=== PATIENT | female | born 1965 | race Caucasian/White ===

== ENCOUNTER 2017-11-14 11:17 | Outpatient (CLI) | payer OTHER ==
[~2017-11-14 11:17] MED LIST: DIPH-423 PO
[2017-11-14 12:27] LABS: BASOPHILS # (AUTO) 0.1 X10'3 (0-0.2); EOSINOPHILS # (AUTO) 0.3 X10'3 (0-0.9); EOSINOPHILS % (AUTO) 3.5 % (0-6); HEMATOCRIT 40.6 % (35.0-45.0); HEMOGLOBIN 14.5 g/dl (12.0-16.0); LYMPHOCYTES # (AUTO) 2.9 X10'3 (1.1-4.8); LYMPHOCYTES % (AUTO) 37.2 % (21-51); MEAN CORPUSCULAR HEMOGLOBIN 31.8 PG (27.0-31.0); MEAN CORPUSCULAR HGB CONC 35.6 % (33.0-36.5); MEAN CORPUSCULAR VOLUME 89.3 FL (78-98); MEAN PLATELET VOLUME 9.2 FL (7.4-10.4); MONOCYTES # (AUTO) 0.4 X10'3 (0-0.9); MONOCYTES % (AUTO) 5.4 % (2-12); NEUTROPHILS # (AUTO) 4.1 X10'3 (1.8-7.7); NEUTROPHILS % (AUTO) 52.9 % (42-75); PLATELET COUNT 239 X10'3 (140-440); RED BLOOD COUNT 4.55 X10'6 (4.20-5.60); RED CELL DISTRIBUTION WIDTH 12.2 % (11.5-14.5); WHITE BLOOD COUNT 7.8 X10'3 (4.5-11.0)
[2017-11-14 12:37] LABS: HEMOGLOBIN A1C 5.8 % (4.5-6.2)
[2017-11-14 12:42] LABS: CLARITY,URINE CLEAR (Clear); COLOR,URINE YELLOW (Yellow); GLUCOSE, URINE NEGATIVE (Neg); KETONES,URINE NEGATIVE (Neg); LEUKOCYTE ESTERASE ,URINE NEGATIVE (Neg); NITRITES, URINE NEGATIVE (Neg); OCCULT BLOOD,URINE NEGATIVE (Neg); PH,URINE 5.5 (4.8-8.0); PROTEIN,URINE NEGATIVE (Neg); UROBILINOGEN,URINE 0.2 E.U/dL (0.2-1.0)
[2017-11-14 12:46] LABS: ALANINE AMINOTRANSFERASE 25 U/L (12-78); ALBUMIN 4.2 G/DL (3.4-5.0); ALBUMIN/GLOBULIN RATIO 1.2 (1.1-1.5); ALKALINE PHOSPHATASE 62 IU/L (46-116); ANION GAP 11 (8-16); ASPARTATE AMINO TRANSFERASE 14 U/L (10-37); BILIRUBIN,TOTAL 0.5 MG/DL (0.1-1.0); BLOOD UREA NITROGEN 10 MG/DL (7-18); BUN/CREATININE RATIO 10.2 (6.6-38.0); CALCIUM 8.8 MG/DL (8.5-10.1); CHLORIDE 98 MMOL/L (99-107); CHOL/HDL RATIO 4.5 (0.00-4.99); CHOLESTEROL 239 MG/DL (0-200); CREATININE 0.98 MG/DL (0.40-0.90); GLUCOSE 111 MG/DL (70-104); HDL CHOLESTEROL 53 MG/DL (35-60); LDL CHOLESTEROL 156 MG/DL (50-100); POTASSIUM 3.6 MMOL/L (3.5-5.1); SODIUM 136 MMOL/L (135-145); TOTAL CARBON DIOXIDE 26.7 MMOL/L (24-32); TOTAL PROTEIN 7.7 G/DL (6.4-8.2); TRIGLYCERIDES 143 MG/DL (20-135); eGFR 59 ML/MIN
[2017-11-14 12:46] LABS: UA COLLECTION TYPE CLN CATCH MIDSTREAM
== END 2017-11-14 23:59 | disposition home or self-care (01) ==
LOC: LAB 11:17
PROVIDERS: ATTEND Family Medicine
DX: Z00.01 Encounter for general adult medical examination with abnormal findings (principal); R73.09 Other abnormal glucose
CPT/HCPCS: 36415; 80053; 80061; 81003; 82306; 83036; 84443; 84550; 85025

== ENCOUNTER 2017-11-21 13:00 | Outpatient (CLI) | payer OTHER | END 2017-11-21 23:59 | disposition home or self-care (01) | LOC: LAB 13:00 | PROVIDERS: ATTEND Family Medicine | DX: R73.09 Other abnormal glucose (principal) | CPT/HCPCS: 36415; 82043; 82570 ==

== ENCOUNTER 2018-02-07 14:43 | Emergency (ER) | payer OTHER ==
[~2018-02-07] VITALS: Ht 152.4 cm; Wt 81.8 kg
[2018-02-07] MEDS ORDERED: normal saline 1000ML IV soln IVB ONE (15:10)
[2018-02-07] MEDS ORDERED: ondansetron/PF 4mg/2ml inj IV ONE (15:10)
[2018-02-07 15:40] LABS: BASOPHILS % (AUTO) 0.4 % (0-1); EOSINOPHILS # (AUTO) 0.2 X10'3 (0-0.9); EOSINOPHILS % (AUTO) 1.6 % (0-6); HEMATOCRIT 41.2 % (35.0-45.0); HEMOGLOBIN 14.6 g/dl (12.0-16.0); LYMPHOCYTES # (AUTO) 2.7 X10'3 (1.1-4.8); MEAN CORPUSCULAR HGB CONC 35.3 % (33.0-36.5); MEAN CORPUSCULAR VOLUME 90.5 FL (78-98); MEAN PLATELET VOLUME 8.6 FL (7.4-10.4); MONOCYTES # (AUTO) 0.6 X10'3 (0-0.9); MONOCYTES % (AUTO) 5.4 % (2-12); NEUTROPHILS % (AUTO) 66.6 % (42-75); PLATELET COUNT 226 X10'3 (140-440); RED BLOOD COUNT 4.55 X10'6 (4.20-5.60); RED CELL DISTRIBUTION WIDTH 12.3 % (11.5-14.5); WHITE BLOOD COUNT 10.5 X10'3 (4.5-11.0)
[2018-02-07 15:56] LABS: ALANINE AMINOTRANSFERASE 28 U/L (12-78); ALBUMIN/GLOBULIN RATIO 1.3 (1.1-1.5); ALKALINE PHOSPHATASE 59 IU/L (46-116); ANION GAP 13 (8-16); ASPARTATE AMINO TRANSFERASE 22 U/L (10-37); BILIRUBIN,TOTAL 0.7 MG/DL (0.1-1.0); BLOOD UREA NITROGEN 14 MG/DL (7-18); BUN/CREATININE RATIO 13.7 (6.6-38.0); CALCIUM 9.1 MG/DL (8.5-10.1); CHLORIDE 91 MMOL/L (99-107); CREATININE 1.02 MG/DL (0.40-0.90); GLUCOSE 97 MG/DL (70-104); LIPASE 65 U/L (73-393); SODIUM 130 MMOL/L (135-145); TOTAL CARBON DIOXIDE 26.2 MMOL/L (24-32); TOTAL PROTEIN 7.2 G/DL (6.4-8.2); eGFR 57 ML/MIN
[2018-02-07 16:12] LABS: POTASSIUM 2.9 MMOL/L (3.5-5.1)
[2018-02-07] MEDS: potassium 10mEq/100ml NS w/LIDOcaine (10mg/bag) IV SCH ×2 (16:21→17:17)
[2018-02-07] MEDS ORDERED: POTA20TA19 PO (17:25)
[2018-02-07 17:40] VITALS: BP 122/72
== END 2018-02-07 19:31 | disposition home or self-care (01) ==
LOC: ER 14:45
DX: M54.9 Dorsalgia, unspecified (principal); E87.6 Hypokalemia; I10 Essential (primary) hypertension; Z79.899 Other long term (current) drug therapy
CPT/HCPCS: 36415; 80053; 83690; 85025; 96361; 96365; 96366; 96375; 99285; J2405; J3480; J7030

== ENCOUNTER 2018-02-28 13:47 | Outpatient (CLI) | payer OTHER ==
[~2018-02-28 13:47] MED LIST changes: +POTA20TA19 PO
[2018-02-28 14:33] LABS: ALANINE AMINOTRANSFERASE 26 U/L (12-78); ALBUMIN 4.1 G/DL (3.4-5.0); ALBUMIN/GLOBULIN RATIO 1.1 (1.1-1.5); ALKALINE PHOSPHATASE 70 IU/L (46-116); ANION GAP 10 (8-16); ASPARTATE AMINO TRANSFERASE 19 U/L (10-37); BILIRUBIN,TOTAL 0.6 MG/DL (0.1-1.0); BLOOD UREA NITROGEN 13 MG/DL (7-18); BUN/CREATININE RATIO 9.8 (6.6-38.0); CALCIUM 8.9 MG/DL (8.5-10.1); CHLORIDE 99 MMOL/L (99-107); CREATININE 1.33 MG/DL (0.40-0.90); GLUCOSE 133 MG/DL (70-104); PHOSPHORUS 3.3 MG/DL (2.3-4.5); POTASSIUM 3.3 MMOL/L (3.5-5.1); SODIUM 134 MMOL/L (135-145); TOTAL CARBON DIOXIDE 25.1 MMOL/L (24-32); TOTAL PROTEIN 7.9 G/DL (6.4-8.2); eGFR 42 ML/MIN
== END 2018-02-28 23:59 | disposition home or self-care (01) ==
LOC: LAB 13:47
PROVIDERS: ATTEND Internal Medicine Gastroenterology
DX: E87.6 Hypokalemia (principal); E56.1 Deficiency of vitamin K
CPT/HCPCS: 36415; 80053; 83735; 84100

== ENCOUNTER 2018-12-11 07:35 | Outpatient (CLI) | payer OTHER ==
[~2018-12-11 07:35] MED LIST changes: -POTA20TA19 PO
[2018-12-11 08:49] LABS: BASOPHILS # (AUTO) 0.1 X10'3 (0-0.2); BASOPHILS % (AUTO) 0.9 % (0-1); EOSINOPHILS # (AUTO) 0.1 X10'3 (0-0.9); EOSINOPHILS % (AUTO) 1.9 % (0-6); HEMATOCRIT 43.8 % (35.0-45.0); LYMPHOCYTES # (AUTO) 2.3 X10'3 (1.1-4.8); LYMPHOCYTES % (AUTO) 32.1 % (21-51); MEAN CORPUSCULAR HEMOGLOBIN 31.5 PG (27.0-31.0); MEAN CORPUSCULAR HGB CONC 34.2 g/dL (33.0-36.5); MEAN CORPUSCULAR VOLUME 92.2 FL (78-98); MONOCYTES # (AUTO) 0.4 X10'3 (0-0.9); MONOCYTES % (AUTO) 5.7 % (2-12); NEUTROPHILS # (AUTO) 4.2 X10'3 (1.8-7.7); NEUTROPHILS % (AUTO) 59.4 % (42-75); PLATELET COUNT 218 X10'3 (140-440); RED BLOOD COUNT 4.75 X10'6 (4.20-5.60); RED CELL DISTRIBUTION WIDTH 12.5 % (11.5-14.5); WHITE BLOOD COUNT 7.1 X10'3 (4.5-11.0)
[2018-12-11 09:02] LABS: CLARITY,URINE CLEAR (Clear); COLOR,URINE YELLOW (Yellow); GLUCOSE, URINE NEGATIVE (Neg); KETONES,URINE NEGATIVE (Neg); LEUKOCYTE ESTERASE ,URINE NEGATIVE (Neg); NITRITES, URINE NEGATIVE (Neg); OCCULT BLOOD,URINE NEGATIVE (Neg); PH,URINE 5.5 (4.8-8.0); PROTEIN,URINE NEGATIVE (Neg); UROBILINOGEN,URINE 0.2 E.U/dL (0.2-1.0)
[2018-12-11 09:06] LABS: UA COLLECTION TYPE NON-SPECIFIED
[2018-12-11 09:06] LABS: HEMOGLOBIN A1C 5.7 % (4.5-6.2)
[2018-12-11 09:08] LABS: ALANINE AMINOTRANSFERASE 25 U/L (12-78); ALBUMIN 4.2 G/DL (3.4-5.0); ALBUMIN/GLOBULIN RATIO 1.3 (1.1-1.5); ALKALINE PHOSPHATASE 60 IU/L (46-116); ANION GAP 10 (8-16); ASPARTATE AMINO TRANSFERASE 16 U/L (10-37); BILIRUBIN,TOTAL 0.6 MG/DL (0.1-1.0); BLOOD UREA NITROGEN 20 MG/DL (7-18); BUN/CREATININE RATIO 19.4 (6.6-38.0); CHLORIDE 98 MMOL/L (99-107); CHOL/HDL RATIO 5.3 (0.00-4.99); CHOLESTEROL 218 MG/DL (0-200); CREATININE 1.03 MG/DL (0.40-0.90); GLUCOSE 115 MG/DL (70-104); HDL CHOLESTEROL 41 MG/DL (35-60); LDL CHOLESTEROL 145 MG/DL (50-100); POTASSIUM 3.2 MMOL/L (3.5-5.1); SODIUM 132 MMOL/L (135-145); TOTAL CARBON DIOXIDE 24.1 MMOL/L (24-32); TOTAL PROTEIN 7.5 G/DL (6.4-8.2); TRIGLYCERIDES 192 MG/DL (20-135); eGFR 56 ML/MIN
== END 2018-12-11 23:59 | disposition home or self-care (01) ==
LOC: LAB 07:35
PROVIDERS: ATTEND Family Medicine
DX: E78.2 Mixed hyperlipidemia (principal); R73.09 Other abnormal glucose; E03.9 Hypothyroidism, unspecified; N39.0 Urinary tract infection, site not specified; I10 Essential (primary) hypertension; M10.9 Gout, unspecified
CPT/HCPCS: 36415; 80053; 80061; 81003; 83036; 84439; 84443; 85025

== ENCOUNTER 2019-09-20 08:07 | Outpatient (CLI) | payer OTHER ==
[2019-09-20 09:43] LABS: ALBUMIN 4.2 G/DL (3.4-5.0); ANION GAP 11 (8-16); BLOOD UREA NITROGEN 17 MG/DL (7-18); BUN/CREATININE RATIO 15.6 (6.6-38.0); CALCIUM 8.9 MG/DL (8.5-10.1); CHLORIDE 103 MMOL/L (99-107); CHOL/HDL RATIO 5.3 (0.00-4.99); CHOLESTEROL 246 MG/DL (0-200); CREATININE 1.09 MG/DL (0.40-0.90); GLUCOSE 138 MG/DL (70-104); HDL CHOLESTEROL 46 MG/DL (35-60); LDL CHOLESTEROL 163 MG/DL (50-100); MAGNESIUM 2.2 MG/DL (1.5-2.4); POTASSIUM 3.8 MMOL/L (3.5-5.1); SODIUM 138 MMOL/L (135-145); TOTAL CARBON DIOXIDE 23.7 MMOL/L (24-32); TRIGLYCERIDES 188 MG/DL (20-135); eGFR 52 ML/MIN
== END 2019-09-20 23:59 | disposition home or self-care (01) ==
LOC: LAB 08:07
PROVIDERS: ATTEND Family Medicine
DX: Z00.00 Encounter for general adult medical examination without abnormal findings (principal); E03.9 Hypothyroidism, unspecified; R73.09 Other abnormal glucose
CPT/HCPCS: 36415; 80048; 80061; 83036; 83735; 84443

== ENCOUNTER 2020-03-10 08:26 | Outpatient (CLI) | payer OTHER ==
[2020-03-10 10:08] LABS: ALANINE AMINOTRANSFERASE 72 U/L (12-78); ASPARTATE AMINO TRANSFERASE 30 U/L (10-37); CHOL/HDL RATIO 3.6 (0.00-4.99); CHOLESTEROL 174 MG/DL (0-200); HDL CHOLESTEROL 49 MG/DL (35-60); LDL CHOLESTEROL 98 MG/DL (50-100); TRIGLYCERIDES 136 MG/DL (20-135)
== END 2020-03-10 23:59 | disposition home or self-care (01) ==
LOC: LAB 08:26
PROVIDERS: ATTEND Family Medicine
DX: E03.9 Hypothyroidism, unspecified (principal); E78.2 Mixed hyperlipidemia
CPT/HCPCS: 36415; 80061; 84439; 84443; 84450; 84460; 84481

== ENCOUNTER 2020-07-13 13:20 | Emergency (ER) | payer BC ==
[~2020-07-13] VITALS: Ht 152.4 cm; Wt 85.0 kg
== END 2020-07-13 13:40 | disposition home or self-care (01) ==
LOC: ER 13:20
DX: R53.1 Weakness (principal); R42 Dizziness and giddiness; M79.10 Myalgia, unspecified site; I10 Essential (primary) hypertension; Z20.828 Contact with and (suspected) exposure to other viral communicable diseases; E07.9 Disorder of thyroid, unspecified; Z87.19 Personal history of other diseases of the digestive system; Z79.899 Other long term (current) drug therapy
CPT/HCPCS: 87635; 99283; C9803

== ENCOUNTER 2021-03-19 10:43 | Emergency (ER) | payer BC ==
[~2021-03-19] VITALS: Ht 149.9 cm; Wt 90.0 kg
[2021-03-19 10:46] VITALS: BP 169/89
[2021-03-19 11:32] LABS: CLARITY,URINE SLIGHTLY CLOUDY (Clear); GLUCOSE, URINE NEGATIVE (Neg); KETONES,URINE NEGATIVE (Neg); LEUKOCYTE ESTERASE ,URINE MODERATE (Neg); NITRITES, URINE NEGATIVE (Neg); OCCULT BLOOD,URINE LARGE (Neg); PROTEIN,URINE 100 mg/dl (Neg); UROBILINOGEN,URINE 0.2 E.U/dL (0.2-1.0)
[2021-03-19 11:42] LABS: COLOR,URINE PINK (Yellow); UA COLLECTION TYPE CLN CATCH MIDSTREAM
[2021-03-19 11:43] LABS: BACTERIA,URINE FEW /HPF (Neg); SQUAMOUS EPITHELIAL CELL,UR FEW /LPF (FEW)
[2021-03-19 11:44] LABS: WBC CLUMPS,URINE FEW /HPF (NEGATIVE)
[2021-03-19] MEDS ORDERED: NITR100C6 PO (11:59)
[2021-03-19] MEDS ORDERED: nitrofuran/nitrofuran macrocrysal 100 MG capsule PO ONE (12:00)
== END 2021-03-19 12:16 | disposition home or self-care (01) ==
LOC: ER 10:44
DX: R30.9 Painful micturition, unspecified (principal); N39.0 Urinary tract infection, site not specified; R10.84 Generalized abdominal pain; I10 Essential (primary) hypertension; E03.9 Hypothyroidism, unspecified; F17.200 Nicotine dependence, unspecified, uncomplicated; Z87.440 Personal history of urinary (tract) infections; Z79.899 Other long term (current) drug therapy
CPT/HCPCS: 81001; 87077; 87088; 87186; 99283

== ENCOUNTER 2021-04-17 08:09 | Outpatient (CLI) | payer BC ==
[~2021-04-17 08:09] MED LIST changes: +NITR100C6 PO
[2021-04-17 10:35] LABS: BASOPHILS % (AUTO) 0.6 % (0-1); EOSINOPHILS # (AUTO) 0.2 X10'3 (0-0.9); EOSINOPHILS % (AUTO) 2.5 % (0-6); HEMATOCRIT 44.5 % (35.0-45.0); LYMPHOCYTES # (AUTO) 2.5 X10'3 (1.1-4.8); LYMPHOCYTES % (AUTO) 32.6 % (21-51); MEAN CORPUSCULAR HGB CONC 33.7 g/dL (33.0-36.5); MEAN CORPUSCULAR VOLUME 91.9 FL (78-98); MEAN PLATELET VOLUME 9.5 FL (7.4-10.4); MONOCYTES # (AUTO) 0.4 X10'3 (0-0.9); MONOCYTES % (AUTO) 5.2 % (2-12); NEUTROPHILS # (AUTO) 4.6 X10'3 (1.8-7.7); NEUTROPHILS % (AUTO) 59.1 % (42-75); PLATELET COUNT 223 X10'3 (140-440); RED BLOOD COUNT 4.84 X10'6 (4.20-5.60); RED CELL DISTRIBUTION WIDTH 12.4 % (11.5-14.5); WHITE BLOOD COUNT 7.8 X10'3 (4.5-11.0)
[2021-04-17 11:00] LABS: ALANINE AMINOTRANSFERASE 43 U/L (12-78); ALBUMIN 4.1 G/DL (3.4-5.0); ALBUMIN/GLOBULIN RATIO 1.2 (1.1-1.5); ALKALINE PHOSPHATASE 79 IU/L (46-116); ANION GAP 10 (8-16); ASPARTATE AMINO TRANSFERASE 26 U/L (10-37); BILIRUBIN,TOTAL 0.5 MG/DL (0.1-1.0); BLOOD UREA NITROGEN 15 MG/DL (7-18); BUN/CREATININE RATIO 16.5 (6.6-38.0); CALCIUM 8.7 MG/DL (8.5-10.1); CHLORIDE 106 MMOL/L (99-107); CHOLESTEROL 163 MG/DL (0-200); CREATININE 0.91 MG/DL (0.40-0.90); GLUCOSE 112 MG/DL (70-104); HDL CHOLESTEROL 55 MG/DL (35-60); LDL CHOLESTEROL 81 MG/DL (50-100); SODIUM 141 MMOL/L (135-145); TOTAL CARBON DIOXIDE 25.5 MMOL/L (24-32); TOTAL PROTEIN 7.5 G/DL (6.4-8.2); TRIGLYCERIDES 167 MG/DL (20-135); eGFR 64 ML/MIN
== END 2021-04-17 23:59 | disposition home or self-care (01) ==
LOC: LAB 08:09
PROVIDERS: ATTEND Family Medicine
DX: Z00.00 Encounter for general adult medical examination without abnormal findings (principal)
CPT/HCPCS: 36415; 80053; 80061; 82306; 83036; 84439; 84443; 85025

== ENCOUNTER 2021-08-19 06:27 | Day surgery (SDC) | payer BC ==
[~2021-08-19] VITALS: Ht 149.9 cm; Wt 84.1 kg
[~2021-08-19 06:27] MED LIST changes: +APPLE PECTIN PO; +ASCO-139 PO; +ASPI-10 PO; +BLACK CUMIN SEED OIL PO; +CETI10CA PO; +CHOL400T57 PO; -DIPH-423 PO; +LEVO88TA2 PO; +LISI1TAB51 PO; +MAGN500C16 PO; +MULT-1085 PO; -NITR100C6 PO; +OMEG1CAP13 PO; +ONDA4TAB12 PO; +QUER1POW PO; +ROSU10TA2 PO; +TURM500C4 PO; +UBID300C PO; +ZINC30TA2 PO
[2021-08-19 06:35] VITALS: BP 137/79
[2021-08-19] MEDS ORDERED: MIDAZolam 1 MG/ML 5ML VIAL ONE ×2 (07:02)
[2021-08-19] MEDS ORDERED: fentaNYL/PF 50MCG/1 ML 2ML syringe ONE (07:02)
[2021-08-19] MEDS ORDERED: diphenhydrAMINE 50 mg/ml inj ONE (07:02)
[2021-08-19 07:25] VITALS: BP 104/57
[2021-08-19 07:35] VITALS: BP 102/62
[2021-08-19 07:45] VITALS: BP 106/69
[2021-08-19 07:55] VITALS: BP 118/74
== END 2021-08-19 08:25 | disposition home or self-care (01) ==
LOC: GI LAB 06:27
PROVIDERS: ATTEND Internal Medicine Gastroenterology
DX: Z12.11 Encounter for screening for malignant neoplasm of colon (principal); K57.30 Diverticulosis of large intestine without perforation or abscess without bleeding; K64.0 First degree hemorrhoids; F17.210 Nicotine dependence, cigarettes, uncomplicated; I10 Essential (primary) hypertension; Z79.899 Other long term (current) drug therapy; Z86.010 Personal history of colon polyps; Z79.82 Long term (current) use of aspirin
CPT/HCPCS: 45378; 99152; J1200; J2250; J3010; J7040; Z7512; A4620

== ENCOUNTER → 2022-01-25 | Outpatient (CLI) | payer BC ==
[~2022-01-25] MED LIST changes: -MAGN500C16 PO; +MAGN500C4 PO
== END | disposition home or self-care (01) ==
LOC: RAD 15:59
PROVIDERS: ATTEND Family Medicine
DX: M19.011 Primary osteoarthritis, right shoulder (principal); M19.012 Primary osteoarthritis, left shoulder; M19.042 Primary osteoarthritis, left hand; M75.32 Calcific tendinitis of left shoulder; M75.31 Calcific tendinitis of right shoulder
CPT/HCPCS: 73030; 73130

== ENCOUNTER 2022-09-09 07:29 | Outpatient (CLI) | payer BC ==
[~2022-09-09 07:29] MED LIST changes: +OMEG-5 PO; -OMEG1CAP13 PO; -UBID300C PO; +UBID300C3 PO
[2022-09-09 09:12] LABS: BASOPHILS # (AUTO) 0.1 X10'3 (0-0.2); BASOPHILS % (AUTO) 0.8 % (0-1); EOSINOPHILS # (AUTO) 0.1 X10'3 (0-0.9); EOSINOPHILS % (AUTO) 1.6 % (0-6); HEMATOCRIT 44.5 % (35.0-45.0); HEMOGLOBIN 14.7 g/dl (12.0-16.0); LYMPHOCYTES # (AUTO) 2.3 X10'3 (1.1-4.8); MEAN CORPUSCULAR HEMOGLOBIN 30.1 PG (27.0-31.0); MEAN CORPUSCULAR VOLUME 91.4 FL (78-98); MEAN PLATELET VOLUME 9.4 FL (7.4-10.4); MONOCYTES # (AUTO) 0.4 X10'3 (0-0.9); MONOCYTES % (AUTO) 5.5 % (2-12); NEUTROPHILS # (AUTO) 4.8 X10'3 (1.8-7.7); NEUTROPHILS % (AUTO) 62.1 % (42-75); PLATELET COUNT 225 X10'3 (140-440); RED BLOOD COUNT 4.87 X10'6 (4.20-5.60); RED CELL DISTRIBUTION WIDTH 12.7 % (11.5-14.5); WHITE BLOOD COUNT 7.8 X10'3 (4.5-11.0)
[2022-09-09 09:29] LABS: ALANINE AMINOTRANSFERASE 43 U/L (12-78); ALBUMIN 4.2 G/DL (3.4-5.0); ALBUMIN/GLOBULIN RATIO 1.3 (1.1-1.5); ALKALINE PHOSPHATASE 60 IU/L (46-116); ANION GAP 10 (8-16); ASPARTATE AMINO TRANSFERASE 21 U/L (10-37); BILIRUBIN,TOTAL 0.6 MG/DL (0.1-1.0); BLOOD UREA NITROGEN 16 MG/DL (7-18); BUN/CREATININE RATIO 19.3 (6.6-38.0); CALCIUM 9.2 MG/DL (8.5-10.1); CHLORIDE 101 MMOL/L (99-107); CHOL/HDL RATIO 2.7 (0.00-4.99); CHOLESTEROL 193 MG/DL (0-200); CREATININE 0.83 MG/DL (0.40-0.90); GLUCOSE 137 MG/DL (70-104); HDL CHOLESTEROL 72 MG/DL (35-60); LDL CHOLESTEROL 107 MG/DL (50-100); POTASSIUM 3.8 MMOL/L (3.5-5.1); SODIUM 137 MMOL/L (135-145); TOTAL CARBON DIOXIDE 25.9 MMOL/L (24-32); TOTAL PROTEIN 7.5 G/DL (6.4-8.2); TRIGLYCERIDES 164 MG/DL (20-135); eGFR 71 ML/MIN
[2022-09-09 10:01] LABS: HEMOGLOBIN A1C 5.6 % (4.5-6.2)
[2022-09-09 11:14] LABS: RHEUM FACTOR QUAL REFLEX TITER NEGATIVE (Neg)
[2022-09-10 14:01] LABS: MICROALB/CRT, RATIO <18 mg/g creat (0-29)
== END 2022-09-09 23:59 | disposition home or self-care (01) ==
LOC: LAB 07:29
PROVIDERS: ATTEND Family Medicine
DX: M10.00 Idiopathic gout, unspecified site (principal); E78.2 Mixed hyperlipidemia; E03.9 Hypothyroidism, unspecified; I10 Essential (primary) hypertension; R79.89 Other specified abnormal findings of blood chemistry; R73.09 Other abnormal glucose; R77.9 Abnormality of plasma protein, unspecified; M05.9 Rheumatoid arthritis with rheumatoid factor, unspecified
CPT/HCPCS: 36415; 80053; 80061; 82043; 82306; 82570; 83036; 84443; 84550; 85025; 85651; 86430

== ENCOUNTER 2022-09-09 07:42 | Outpatient (CLI) | payer BC | END 2022-09-09 23:59 | disposition home or self-care (01) | LOC: RAD 07:42 | PROVIDERS: ATTEND Family Medicine | DX: M17.0 Bilateral primary osteoarthritis of knee (principal); M25.762 Osteophyte, left knee; M25.761 Osteophyte, right knee; M25.461 Effusion, right knee; M25.462 Effusion, left knee | CPT/HCPCS: 73564 ==

== ENCOUNTER 2022-11-24 08:41 | Outpatient (CLI) | payer BC | END 2022-11-24 23:59 | disposition home or self-care (01) | LOC: RAD 08:41 | PROVIDERS: ATTEND Physician Assistant Surgical | DX: S83.241A Other tear of medial meniscus, current injury, right knee, initial encounter (principal); S83.242A Other tear of medial meniscus, current injury, left knee, initial encounter; M70.52 Other bursitis of knee, left knee; M17.0 Bilateral primary osteoarthritis of knee; M25.561 Pain in right knee; M25.562 Pain in left knee; X58.XXXA Exposure to other specified factors, initial encounter; Y93.89 Activity, other specified; Y92.89 Other specified places as the place of occurrence of the external cause; Y99.8 Other external cause status | CPT/HCPCS: 73721 ==

== ENCOUNTER 2023-04-14 06:01 | Day surgery (SDC) | payer BC ==
[2023-04-05 17:03] LABS: BILIRUBIN,URINE NEGATIVE (Neg); CLARITY,URINE CLEAR (Clear); COLOR,URINE YELLOW (Yellow); GLUCOSE, URINE NEGATIVE (Neg); KETONES,URINE NEGATIVE (Neg); LEUKOCYTE ESTERASE ,URINE NEGATIVE (Neg); NITRITES, URINE NEGATIVE (Neg); OCCULT BLOOD,URINE NEGATIVE (Neg); PROTEIN,URINE NEGATIVE (Neg); UROBILINOGEN,URINE 0.2 E.U/dL (0.2-1.0)
[2023-04-05 17:06] LABS: BASOPHILS # (AUTO) 0.1 X10'3 (0-0.2); BASOPHILS % (AUTO) 0.5 % (0-1); EOSINOPHILS # (AUTO) 0.2 X10'3 (0-0.9); EOSINOPHILS % (AUTO) 1.8 % (0-6); LYMPHOCYTES # (AUTO) 3.7 X10'3 (1.1-4.8); LYMPHOCYTES % (AUTO) 31.2 % (21-51); MEAN CORPUSCULAR HEMOGLOBIN 31.3 PG (27.0-31.0); MEAN CORPUSCULAR HGB CONC 33.8 g/dL (33.0-36.5); MEAN CORPUSCULAR VOLUME 92.6 FL (78-98); MEAN PLATELET VOLUME 9.1 FL (7.4-10.4); MONOCYTES # (AUTO) 0.6 X10'3 (0-0.9); NEUTROPHILS # (AUTO) 7.2 X10'3 (1.8-7.7); NEUTROPHILS % (AUTO) 61.5 % (42-75); PRE OP HEMATOCRIT 46.5 % (35.0-45.0); PRE OP HEMOGLOBIN 15.7 g/dL (12.0-16.0); PRE OP PLATELET COUNT 254 X10'3 (140-440); PRE OP WHITE BLOOD COUNT 11.8 10'3 (4.8-10.8); RED BLOOD COUNT 5.02 X10'6 (4.20-5.60); RED CELL DISTRIBUTION WIDTH 13.2 % (11.5-14.5)
[2023-04-05 17:23] LABS: UA COLLECTION TYPE NON-SPECIFIED
[2023-04-05 17:46] LABS: ALBUMIN 4.1 G/DL (3.4-5.0); ALBUMIN/GLOBULIN RATIO 1.2 (1.1-1.5); ALKALINE PHOSPHATASE 72 IU/L (46-116); BLOOD UREA NITROGEN 16 MG/DL (7-18); BUN/CREATININE RATIO 15.8 (10.0-20.0); CALCIUM 9.5 MG/DL (8.5-10.1); CHLORIDE 100 MMOL/L (99-107); CREATININE 1.01 MG/DL (0.40-0.90); PRE OP ALT 39 U/L (30-65); PRE OP ANION GAP 9 (8-16); PRE OP AST 17 U/L (10-37); PRE OP BILIRUB, TOTAL 0.3 MG/DL (0.0-1.0); PRE OP GLUCOSE 96 MG/DL (70-104); PRE OP POTASSIUM 3.5 MMOL/L (3.4-5.1); PRE OP SODIUM 137 MMOL/L (135-145); THYROID STIMULATING HORMONE 2.89 ulU/ml (0.34-4.50); TOTAL CARBON DIOXIDE 27.8 MMOL/L (24-32); TOTAL PROTEIN 7.6 G/DL (6.4-8.2); eGFR 56 ML/MIN
[2023-04-14] VITALS (17 sets, daily range): BP systolic 87–119; BP diastolic 47–78; PULSE 47–72; RESP 9–18; TEMP 97.9; O2SAT 95–99
[~2023-04-14] VITALS: Ht 152.4 cm; Wt 84.4 kg
[~2023-04-14 06:01] MED LIST changes: -APPLE PECTIN PO; +BROMELAIN; -CETI10CA PO; +NAC; +NATTOKINASE; -ONDA4TAB12 PO; -TURM500C4 PO; -UBID300C3 PO; +acetaminophen 325mg tablet PO ONE; +cefazolin 2gm/D5W 100mL 100 ML IV ONE; +celeCOXIB 100mg capsule PO ONE; +famotidine 20mg tablet PO ONE; +gabapentin 300mg capsule PO ONE; +metoclopramide 5 mg/ml inj IV ONE; +oxyCODONE SR 10mg (sust. release) tab -2 tabs (20mg) PO ONE; +ringers solution, lacted 1,000 ML IV SCH; +tranexamic acid inj. 1,000 MG in normal saline IV soln 100ML IV ONE; +vancomycin 1,500 MG in NS 300ml IV soln IV ONE
--- NOTE | 2023-04-14 06:45 | NUR ---
PT STATES SHE BATHED FOR THE LAST 5 DAYS PER JOINT REPLACEMENT PROTOCOL AND USED BACTROBAN. PT DENIES ANY DECREASED SENSATION. Addendum: 04/14/23 at 1633 by Brenda Red RN Amended: Links added.
[2023-04-14] MEDS ORDERED: fentaNYL/PF 50MCG/1 ML 2ML syringe ONE (07:00)
[2023-04-14] MEDS ORDERED: MIDAZolam 1 MG/ML 5ML VIAL ONE (07:00)
[2023-04-14] MEDS ORDERED: cloNIDine hcl/PF 100mcg/ml inj ONE (07:01)
[2023-04-14] MEDS ORDERED: ketorolac trometh. 30mg/ml inj. ONE (07:01)
[2023-04-14] MEDS ORDERED: vancomycin 1,000mg inj ONE (07:01)
[2023-04-14] MEDS ORDERED: epiNEPHrine 1 mg/ml inj ONE (07:01)
[2023-04-14] MEDS ORDERED: propofol inj 20 ML IV ONE (07:01)
[2023-04-14] MEDS ORDERED: ROPIVAcaine 0.5% (5mg/ml) 30ml vial ONE ×2 (07:02→09:26)
[2023-04-14] MEDS ORDERED: ROPIVAcaine 0.2%/PF PUMP/bolus 545 ML ADDCANAL SCH (07:10)
[2023-04-14] MEDS ORDERED: ROPIVAcaine 0.2% (10 MG/5 ML) BOLUS INJECTION ADDCANAL PRN (07:10)
[2023-04-14] MEDS ORDERED: proCHLORperazine 10 MG/2 ml inj IV PRN (07:10)
[2023-04-14] MEDS ORDERED: ringers solution, lacted 1,000 ML IV SCH (07:10)
[2023-04-14] MEDS ORDERED: meperidine/PF 25mg/ml syringe IV PRN ×3 (07:10)
[2023-04-14] MEDS ORDERED: morphine 2 MG/ML inj. syringe IV PRN (07:10)
[2023-04-14] MEDS ORDERED: morphine 4 MG/ML inj SYRINge IV PRN (07:10)
[2023-04-14] MEDS ORDERED: ondansetron/PF 4mg/2ml inj IV PRN ×2 (07:10→09:40)
[2023-04-14] MEDS ORDERED: ROPIVAcaine 0.5% (5mg/ml) 30ml vial IJ ONE (08:12)
[2023-04-14] MEDS ORDERED: cloNIDine hcl/PF 100mcg/ml inj IJ ONE (08:14)
[2023-04-14] MEDS ORDERED: epiNEPHrine 1 MG/ML 1 ml ampule **BRONCH ONLY IJ ONE (08:18)
--- NOTE | 2023-04-14 09:29 | NUR ---
[facility], accompanied by Anesthesiologist DR GOLDSMITH and report given by Anesthesiolgist. PT PRESENTS WITH PIV 20G LEFT HAND, SPO2 98% ROOM AIR, LR RUNNING AT 100MLS.HR, RIGHT KNEE ABY DRESSING, ON-Q READY, SILVER WRAP WITH POWDERPACK CDI, PEDAL PULSES PALPABLE, VSS. Addendum: 04/14/23 at 0953 by Ute Garcia RN, RN Amended: Links added.
[2023-04-14] MEDS ORDERED: potassium cl 20mEq in 1/2 NS 1,000 ML IV SCH (09:40)
[2023-04-14] MEDS ORDERED: magnesium hydroxide 30ml (MOM) UD suspension PO PRN (09:40)
[2023-04-14] MEDS ORDERED: bisacodyl 10mg suppository rectal RC PRN (09:40)
[2023-04-14] MEDS ORDERED: naloxone 0.4 mg/ml inj IV PRN (09:40)
[2023-04-14] MEDS ORDERED: acetaminophen 325mg tablet PO PRN (09:40)
[2023-04-14] MEDS ORDERED: diphenhydrAMINE 25mg capsule PO PRN ×2 (09:40)
[2023-04-14] MEDS ORDERED: HYDROcodone/acetaminophen 10/325mg tab PO PRN ×2 (09:40)
[2023-04-14] MEDS ORDERED: HYDROmorphone 1 mg/ml syringe IV PRN (09:40)
[2023-04-14] MEDS ORDERED: HYDROmorphone inj. 0.5 MG/0.5 ML DISP.SYRIN IV PRN (09:40)
--- NOTE | 2023-04-14 09:54 | NUR ---
XRAY AT BEDSIDE. Addendum: 04/14/23 at 0954 by Ute Garcia RN RN Amended: Links added.
[2023-04-14] MEDS ORDERED: tranexamic acid inj. 840 MG in normal saline 100ml IV soln 91.6 ML IV ONE (11:30)
[2023-04-14] MEDS ORDERED: gabapentin 300mg capsule PO SCH (13:00)
--- NOTE | 2023-04-14 15:29 | NUR ---
PT HAS MET D/C CRITERIA. IV D/C'D. VSS. DRESSING C/D/I. ABY DRESSING AND ON-Q IN PLACE WITH SILVER WRAP AND POWDER PACK CDI. PT HAS BEED CLEARED BY PHYSICAL THERAPY TO GO HOME. I HAVE REVIEWED D/C INSTRUCTIONS WITH PATIENT AND SHE HAS VERBALIZED UNDERSTANDING OF INSTRUCTIONS. PATIENT D/C HOME WITH ALL BELONGINGS. PT TAKEN OUT IN A WHEELCHAIR TO PRIVATE VEHICLE. PT FRIEND DROVE PT HOME. Addendum: 04/14/23 at 1548 by tUe Garcia RN, RN Amended: Links added.
[2023-04-14] MEDS ORDERED: ascorbic acid 500mg tablet PO SCH (20:00)
[2023-04-14] MEDS ORDERED: VANCOMYCIN 1,500MG inj. 1,500 MG in normal saline 500ml IV soln 300 ML IV ONE (20:00)
[2023-04-14] MEDS ORDERED: sennosides 8.6mg tablet PO SCH (21:00)
[2023-04-15] MEDS ORDERED: levoTHYROXINE 88mcg tablet PO SCH (08:00)
[2023-04-15] MEDS ORDERED: HYDROchlorothiazide 12.5mg capsule PO SCH (08:00)
[2023-04-15] MEDS ORDERED: multivitamins, therapeutics tablet PO SCH (08:00)
[2023-04-15] MEDS ORDERED: lisinopril 20mg tablet PO SCH (08:00)
[2023-04-15] MEDS ORDERED: atorvastatin 20mg tablet PO SCH (08:00)
[2023-04-15] MEDS ORDERED: aspirin 325mg tablet PO SCH (08:30)
[2023-04-15] MEDS ORDERED: celeCOXIB 100mg capsule PO SCH (20:00)
== END 2023-04-14 15:29 | disposition home or self-care (01) ==
LOC: PAS 06:01
PROVIDERS: ATTEND Orthopaedic Surgery
DX: M17.11 Unilateral primary osteoarthritis, right knee (principal); I10 Essential (primary) hypertension; E78.5 Hyperlipidemia, unspecified; E03.9 Hypothyroidism, unspecified; G89.18 Other acute postprocedural pain; E66.9 Obesity, unspecified; Z68.37 Body mass index [BMI] 37.0-37.9, adult; Z87.891 Personal history of nicotine dependence; Z98.41 Cataract extraction status, right eye; Z98.42 Cataract extraction status, left eye; Z87.440 Personal history of urinary (tract) infections; Z88.8 Allergy status to other drugs, medicaments and biological substances; Z79.899 Other long term (current) drug therapy; Z79.82 Long term (current) use of aspirin; Z72.89 Other problems related to lifestyle; Z80.0 Family history of malignant neoplasm of digestive organs; Z83.3 Family history of diabetes mellitus; Z81.8 Family history of other mental and behavioral disorders
CPT/HCPCS: 27447; 36415; 64448; 71046; 73560; 80053; 81003; 82948; 84443; 85025; 87081; 97116; 97161; C1713; C1776; J0171; J0690; J0735; J1885; J2250; J2704; J2765; J2795; J3010; J3370; J3490; J7030; J7120; Z7506; Z7508; Z7512; 97530; A4215; A7000

== ENCOUNTER 2023-10-04 08:42 | Emergency (ER) | payer BC ==
[~2023-10-04] VITALS: Ht 152.4 cm; Wt 77.3 kg
[~2023-10-04 08:42] MED LIST changes: -acetaminophen 325mg tablet PO ONE; -cefazolin 2gm/D5W 100mL 100 ML IV ONE; -celeCOXIB 100mg capsule PO ONE; -famotidine 20mg tablet PO ONE; -gabapentin 300mg capsule PO ONE; -metoclopramide 5 mg/ml inj IV ONE; -oxyCODONE SR 10mg (sust. release) tab -2 tabs (20mg) PO ONE; -ringers solution, lacted 1,000 ML IV SCH; -tranexamic acid inj. 1,000 MG in normal saline IV soln 100ML IV ONE; -vancomycin 1,500 MG in NS 300ml IV soln IV ONE
[2023-10-04 08:48] VITALS: TEMP 98
[2023-10-04] MEDS: diphenhydrAMINE 50 mg/ml inj IV ONE (09:15)
[2023-10-04] MEDS: methylPREDNISolone sod succ 125mg/2ml vial IV ONE (09:15)
[2023-10-04] MEDS: famotidine/PF 10 mg/ml inj IV ONE (09:15)
[2023-10-04 09:34] VITALS: BP 145/84; PULSE 71; RESP 18; O2SAT 98
[2023-10-04] MEDS ORDERED: DIPH25CA83 PO (11:01)
[2023-10-04] MEDS ORDERED: PRED20TA PO (11:01)
[2023-10-04] MEDS ORDERED: FAMO20TA47 PO (11:01)
== END 2023-10-04 11:57 | disposition home or self-care (01) ==
LOC: ER 08:42
DX: T78.3XXA Angioneurotic edema, initial encounter (principal); I10 Essential (primary) hypertension; E03.9 Hypothyroidism, unspecified; F17.200 Nicotine dependence, unspecified, uncomplicated; Z88.8 Allergy status to other drugs, medicaments and biological substances; Z79.82 Long term (current) use of aspirin; Z79.899 Other long term (current) drug therapy; Z79.2 Long term (current) use of antibiotics; Y92.89 Other specified places as the place of occurrence of the external cause
CPT/HCPCS: 96374; 96375; 99284; J1200; J2930; J3490

== ENCOUNTER 2023-11-26 12:18 | Emergency (ER) | payer BC ==
[~2023-11-26] VITALS: Ht 152.4 cm; Wt 79.5 kg
[~2023-11-26 12:18] MED LIST changes: +DIPH25CA83 PO; +FAMO20TA47 PO
[2023-11-26] MEDS: normal saline 1000ML IV soln IVB STA (12:33)
[2023-11-26] MEDS: famotidine/PF 10 mg/ml inj IV ONE (12:34)
[2023-11-26] MEDS: epiNEPHrine 1 mg/ml inj SQ ONE (12:39)
[2023-11-26] MEDS: methylPREDNISolone sod succ 125mg/2ml vial IV ONE (12:39)
[2023-11-26 12:55] LABS: BASOPHILS # (AUTO) 0.1 X10'3 (0-0.2); BASOPHILS % (AUTO) 0.9 % (0-1); EOSINOPHILS # (AUTO) 0.2 X10'3 (0-0.9); EOSINOPHILS % (AUTO) 2.6 % (0-6); HEMATOCRIT 42.9 % (35.0-45.0); HEMOGLOBIN 14.5 g/dl (12.0-16.0); LYMPHOCYTES # (AUTO) 2.7 X10'3 (1.1-4.8); LYMPHOCYTES % (AUTO) 35.6 % (21-51); MEAN CORPUSCULAR HEMOGLOBIN 31.1 PG (27.0-31.0); MEAN CORPUSCULAR HGB CONC 33.7 g/dL (33.0-36.5); MEAN CORPUSCULAR VOLUME 92.3 FL (78-98); MONOCYTES # (AUTO) 0.4 X10'3 (0-0.9); MONOCYTES % (AUTO) 5.3 % (2-12); NEUTROPHILS # (AUTO) 4.2 X10'3 (1.8-7.7); NEUTROPHILS % (AUTO) 55.6 % (42-75); PLATELET COUNT 220 X10'3 (140-440); RED BLOOD COUNT 4.64 X10'6 (4.20-5.60); RED CELL DISTRIBUTION WIDTH 12.7 % (11.5-14.5); WHITE BLOOD COUNT 7.5 X10'3 (4.5-11.0)
[2023-11-26 13:12] LABS: ALBUMIN 3.6 G/DL (3.4-5.0); ANION GAP 11 (8-16); BLOOD UREA NITROGEN 12 MG/DL (7-18); BUN/CREATININE RATIO 14.6 (10.0-20.0); CALCIUM 8.6 MG/DL (8.5-10.1); CHLORIDE 105 MMOL/L (99-107); CREATININE 0.82 MG/DL (0.40-0.90); GLUCOSE 108 MG/DL (70-104); SODIUM 142 MMOL/L (135-145); TOTAL CARBON DIOXIDE 25.9 MMOL/L (24-32); eCRCL 53 ML/MIN; eGFR 71 ML/MIN
[2023-11-26 13:14] LABS: C-REACTIVE PROTEIN < 0.05 MG/DL (0.0-0.5)
[2023-11-26] MEDS ORDERED: DEC4T PO (14:17)
[2023-11-26] MEDS ORDERED: FAMO-129 PO (14:17)
[2023-11-26 14:44] VITALS: BP 132/93; PULSE 72; RESP 16; TEMP 98.6; O2SAT 98
== END 2023-11-26 14:54 | disposition home or self-care (01) ==
LOC: ER 12:19
DX: T78.2XXA Anaphylactic shock, unspecified, initial encounter (principal); I10 Essential (primary) hypertension; E03.9 Hypothyroidism, unspecified; Z88.6 Allergy status to analgesic agent; Z79.899 Other long term (current) drug therapy; Z79.82 Long term (current) use of aspirin
CPT/HCPCS: 36415; 71045; 80048; 85025; 85651; 86140; 96361; 96372; 96374; 96375; 99291; J0171; J2930; J3490; J7030; 99284

== ENCOUNTER 2023-12-22 10:29 | Outpatient (CLI) | payer BC ==
[~2023-12-22 10:29] MED LIST changes: +DEC4T PO; +FAMO-129 PO
[2023-12-22 11:26] LABS: BASOPHILS # (AUTO) 0.1 X10'3 (0-0.2); EOSINOPHILS # (AUTO) 0.3 X10'3 (0-0.9); EOSINOPHILS % (AUTO) 5.5 % (0-6); HEMATOCRIT 43.2 % (35.0-45.0); HEMOGLOBIN 14.5 g/dl (12.0-16.0); LYMPHOCYTES # (AUTO) 2.3 X10'3 (1.1-4.8); LYMPHOCYTES % (AUTO) 39.9 % (21-51); MEAN CORPUSCULAR HEMOGLOBIN 30.8 PG (27.0-31.0); MEAN CORPUSCULAR HGB CONC 33.5 g/dL (33.0-36.5); MEAN PLATELET VOLUME 9.7 FL (7.4-10.4); MONOCYTES # (AUTO) 0.4 X10'3 (0-0.9); MONOCYTES % (AUTO) 6.1 % (2-12); NEUTROPHILS # (AUTO) 2.8 X10'3 (1.8-7.7); NEUTROPHILS % (AUTO) 47.5 % (42-75); PLATELET COUNT 219 X10'3 (140-440); RED BLOOD COUNT 4.69 X10'6 (4.20-5.60); RED CELL DISTRIBUTION WIDTH 12.5 % (11.5-14.5); WHITE BLOOD COUNT 5.8 X10'3 (4.5-11.0)
[2023-12-22 11:45] LABS: HEMOGLOBIN A1C 5.6 % (4.5-6.2)
[2023-12-22 11:51] LABS: ALANINE AMINOTRANSFERASE 29 U/L (12-78); ALBUMIN 3.7 G/DL (3.4-5.0); ALBUMIN/GLOBULIN RATIO 1.1 (1.1-1.5); ALKALINE PHOSPHATASE 76 IU/L (46-116); ANION GAP 10 (8-16); ASPARTATE AMINO TRANSFERASE 20 U/L (10-37); BILIRUBIN,TOTAL 0.3 MG/DL (0.1-1.0); BLOOD UREA NITROGEN 17 MG/DL (7-18); BUN/CREATININE RATIO 21.3 (10.0-20.0); CALCIUM 8.8 MG/DL (8.5-10.1); CHLORIDE 104 MMOL/L (99-107); CHOL/HDL RATIO 5.8 (0.00-4.99); CHOLESTEROL 325 MG/DL (0-200); GLUCOSE 115 MG/DL (70-104); HDL CHOLESTEROL 56 MG/DL (35-60); LDL CHOLESTEROL 226 MG/DL (50-100); POTASSIUM 4.1 MMOL/L (3.5-5.1); SODIUM 137 MMOL/L (135-145); TOTAL CARBON DIOXIDE 23.1 MMOL/L (24-32); TOTAL PROTEIN 7.2 G/DL (6.4-8.2); TRIGLYCERIDES 219 MG/DL (20-135); eGFR 73 ML/MIN
== END 2023-12-22 23:59 | disposition home or self-care (01) ==
LOC: LAB 10:29
PROVIDERS: ATTEND Family Medicine
DX: Z00.00 Encounter for general adult medical examination without abnormal findings (principal)
CPT/HCPCS: 36415; 80053; 80061; 83036; 84443; 85025